=== PATIENT | female | born 1940 | race Caucasian/White ===

== ENCOUNTER 2017-03-20 06:55 | Outpatient (CLI) | payer MEDICARE, MEDICAID ==
[2017-03-20 07:34] LABS: ALT (SGPT) 62 U/L (8-55); AST (SGOT) 37 U/L (5-34); Albumin 4.1 g/dL (3.4-4.8); Alkaline Phosphatase 114 U/L (40-150); Anion Gap 19 mmol/L (10-20); Bilirubin, Total 0.6 mg/dL (0.2-1.2); Calc. Creatinine Clearance 0 mL/min (70-130); Carbon Dioxide 24 mmol/L (23-31); Chloride 103 mmol/L (98-107); Cholesterol 294 mg/dL (< 200 Desired); Estimated GFR-MDRD 55; Glucose 101 mg/dL (83-110); HDL Cholesterol 59 mg/dL (>60 Neg Risk); LDL Cholesterol, Calculated 185 mg/dL; Potassium 3.8 mmol/L (3.5-5.1); Protein, Total 7.1 g/dL (5.8-8.1); Sodium 142 mmol/L (136-145); Triglycerides 251 mg/dL (Less than 150)
[2017-03-20 07:48] LABS: #Basophils 0.1 thou/uL (0.0-0.2); #Eosinphils 0.5 thou/uL (0.0-0.7); #Lymphocytes 5.5 thou/uL (1.20-3.40); #Monocytes 1.1 thou/uL (0.11-0.59); #Neutrophils 7.9 thou/uL (1.40-6.50); %Eosinophils 3.3 % (0.0-10.0); %Lymphocytes 36.3 % (21.0-51.0); %Neutrophils 52.5 % (42.0-75.0); Hemoglobin 12.4 g/dL (12.0-16.0); Mean Corpuscular Hemoglobin 29.6 pg (27.0-31.0); Mean Corpuscular Volume 92.4 fl (81.0-99.0); Mean Platelet Volume 9.2 fL (7.4-10.4); Platelet Count 339 thou/uL (130-400); RBC Distribution Width 15.7 % (11.5-14.5); Red Blood Cell (RBC) Count 4.18 mill/uL (4.20-5.40)
[2017-03-20 08:15] LABS: BUN (Urea Nitrogen) 23 mg/dL (9.8-20.1)
== END 2017-03-20 06:56 | disposition home or self-care (01) ==
LOC: NAV LAB 06:55
PROVIDERS: ATTEND Family Medicine
DX: E03.9 Hypothyroidism, unspecified (principal); G89.29 Other chronic pain; I10 Essential (primary) hypertension
CPT/HCPCS: 36415; 80053; 80061; 84443; 85025

== ENCOUNTER 2017-04-02 07:26 | Outpatient (CLI) | payer MEDICARE, OTHER ==
[2017-04-02 08:23] LABS: Prothrombin Time 32.3 SEC (12.0-14.7)
[2017-04-02 08:35] LABS: #Lymphocytes 1.7 thou/uL (1.20-3.40); #Monocytes 0.8 thou/uL (0.11-0.59); #Neutrophils 17.3 thou/uL (1.40-6.50); %Basophils 0.2 % (0.0-1.0); %Lymphocytes 8.6 % (21.0-51.0); %Monocytes 3.9 % (0.0-10.0); %Neutrophils 87.3 % (42.0-75.0); Hemoglobin 9.9 g/dL (12.0-16.0); Mean Corpuscular HGB CONC 32.8 g/dL (32.0-36.0); Mean Corpuscular Hemoglobin 30.5 pg (27.0-31.0); Mean Corpuscular Volume 92.9 fl (81.0-99.0); Mean Platelet Volume 8.1 fL (7.4-10.4); Platelet Count 343 thou/uL (130-400); RBC Distribution Width 15.9 % (11.5-14.5); Red Blood Cell (RBC) Count 3.26 mill/uL (4.20-5.40); White Blood Cell (WBC) Count 19.8 thou/uL (4.8-10.8)
== END 2017-04-02 07:27 | disposition home or self-care (01) ==
LOC: NAV LABSP 07:26
PROVIDERS: ATTEND Family Medicine
DX: T14.8 Other injury of unspecified body region (principal); R23.3 Spontaneous ecchymoses
CPT/HCPCS: 36415; 85025; 85610

== ENCOUNTER 2017-04-10 07:49 | Outpatient (CLI) | payer MEDICARE, MEDICAID ==
[2017-04-10 09:50] LABS: Band 7 % (5-11); Eosinophils 1 % (0-10); Hemoglobin 10.1 g/dL (12.0-16.0); Lymphocytes 16 % (21-51); MDiff Complete? YES; Mean Corpuscular HGB CONC 31.4 g/dL (32.0-36.0); Mean Corpuscular Hemoglobin 30.2 pg (27.0-31.0); Mean Corpuscular Volume 96.1 fl (81.0-99.0); Mean Platelet Volume 8.9 fL (7.4-10.4); Monocytes 2 % (0-10); Neutrophil 74 % (42-75); PLT Morphology Comment Appears Adequate; Platelet Count 364 thou/uL (130-400); RBC Distribution Width 16.8 % (11.5-14.5); Red Blood Cell (RBC) Count 3.33 mill/uL (4.20-5.40); White Blood Cell (WBC) Count 20.4 thou/uL (4.8-10.8)
== END 2017-04-10 07:50 | disposition home or self-care (01) ==
LOC: NAV LABSP 07:49
PROVIDERS: ATTEND Family Medicine
DX: J44.9 Chronic obstructive pulmonary disease, unspecified (principal)
CPT/HCPCS: 36415; 85025

== ENCOUNTER 2017-04-16 16:29 | Outpatient (CLI) | payer MEDICARE, OTHER | END 2017-04-16 16:30 | disposition home or self-care (01) | LOC: NAV LABSP 16:29 | PROVIDERS: ATTEND Family Medicine | DX: R50.9 Fever, unspecified (principal) ==

== ENCOUNTER 2017-04-24 07:52 | Outpatient (CLI) | payer MEDICARE, OTHER ==
[2017-04-24 08:35] LABS: #Basophils 0.1 thou/uL (0.0-0.2); #Eosinphils 0.6 thou/uL (0.0-0.7); #Lymphocytes 4.2 thou/uL (1.20-3.40); #Monocytes 1.2 thou/uL (0.11-0.59); %Basophils 0.9 % (0.0-1.0); %Lymphocytes 25.8 % (21.0-51.0); %Monocytes 7.2 % (0.0-10.0); %Neutrophils 62.1 % (42.0-75.0); Hemoglobin 9.6 g/dL (12.0-16.0); Mean Corpuscular HGB CONC 31.5 g/dL (32.0-36.0); Mean Corpuscular Hemoglobin 29.8 pg (27.0-31.0); Mean Corpuscular Volume 94.7 fl (81.0-99.0); Mean Platelet Volume 7.3 fL (7.4-10.4); Platelet Count 401 thou/uL (130-400); RBC Distribution Width 15.4 % (11.5-14.5); Red Blood Cell (RBC) Count 3.21 mill/uL (4.20-5.40); White Blood Cell (WBC) Count 16.1 thou/uL (4.8-10.8)
== END 2017-04-24 07:53 | disposition home or self-care (01) ==
LOC: NAV LABSP 07:52
PROVIDERS: ATTEND Family Medicine
DX: D72.829 Elevated white blood cell count, unspecified (principal)
CPT/HCPCS: 36415; 85025

== ENCOUNTER 2017-04-30 15:13 | Emergency (ER) | payer MEDICARE, OTHER ==
[2017-04-30] MEDS ORDERED: Ibuprofen 200 MG TAB ONE (15:36)
[2017-04-30] MEDS ORDERED: Ondansetron HCl/PF 4 MG/2 ML Vial ONE (15:36)
[2017-04-30] MEDS ORDERED: Sodium Chloride 0.9% 1,000 ML ONE ×2 (15:36→17:43)
[2017-04-30] MEDS ORDERED: cloNIDine HCl 0.1 MG TAB ONE (15:36)
[2017-04-30 16:46] LABS: ALT (SGPT) 20 U/L (8-55); AST (SGOT) 15 U/L (5-34); Albumin 3.7 g/dL (3.4-4.8); Alkaline Phosphatase 117 U/L (40-150); Anion Gap 18 mmol/L (10-20); BUN (Urea Nitrogen) 28 mg/dL (9.8-20.1); Bilirubin, Total 0.2 mg/dL (0.2-1.2); Calc. Creatinine Clearance 0 mL/min (70-130); Calcium 9.4 mg/dL (7.8-10.44); Carbon Dioxide 22 mmol/L (23-31); Chloride 106 mmol/L (98-107); Estimated GFR-MDRD 29; Globulin 3.8 g/dL (2.4-3.5); Glucose 125 mg/dL (83-110); Potassium 4.7 mmol/L (3.5-5.1); Protein, Total 7.5 g/dL (6.0-8.3); Sodium 141 mmol/L (136-145)
[2017-04-30 17:00] LABS: Hemoglobin 11.7 g/dL (12.0-16.0); Lymphocytes 19 % (21-51); MDiff Complete? YES; Mean Corpuscular HGB CONC 31.1 g/dL (32.0-36.0); Mean Corpuscular Hemoglobin 29.9 pg (27.0-31.0); Monocytes 1 % (0-10); Neutrophil 80 % (42-75); Platelet Count 431 thou/uL (130-400); RBC Distribution Width 16.5 % (11.5-14.5); Red Blood Cell (RBC) Count 3.92 mill/uL (4.20-5.40); Target Cells SLIGHT = 2-5 cells (100X) (0-1/hpf); Tear Drops SLIGHT = 2-5 cells (100X) (0-1/hpf)
[2017-04-30] MEDS ORDERED: Cefepime 2 GM VIAL ONE (17:39)
[2017-04-30] MEDS ORDERED: Sodium Chloride 0.9% 0 ML ONE (17:39)
[2017-04-30] MEDS ORDERED: Sodium Chloride 0.9% 100 ML ONE (17:40)
[2017-04-30 18:08] LABS: Bilirubin Negative (Negative); Blood, Urine Negative (Negative); Clarity SL HAZY (Clear); Glucose, Urine (Dipstick) Negative (Negative); Leukocyte Negative (Negative); Nitrite Negative (Negative); Protein, Urine (Dipstick) Negative (Neg-Trace); Specific Gravity, Urine 1.015 (1.005-1.030); Urobilinogen 0.2 mg/dL (0.2-1.0); pH, Urine 5.5 (5.0-9.0)
[2017-04-30] MEDS ORDERED: metroNIDAZOLE 500 MG/100 ML BAG ONE (18:27)
[2017-04-30] MEDS ORDERED: Morphine Sulfate 2 MG/ML SYRINGE ONE (18:54)
--- NOTE | 2017-04-30 18:58 | CT ---
CT ABDOMEN AND PELVIS WITHOUT IV CONTRAST: 04/30/17 Multiple axial tomograms obtained through the abdomen and pelvis without IV enhancement. Oral contra st was not given. HISTORY: Abdominal pain, diarrhea. Comparison made to CT abdomen and pelvis 05/23/16. FINDINGS: Lung bases are clear. Calcified granuloma in the right lung base again noted. Calcified granuloma noted in the liver and spleen. The liver, spleen and pancreas unremarkable. Adre nal glands unremarkable. Kidneys are unremarkable. There is no hydronephrosis. No evidence of urinary tract calculus. Urinary bladder unremarkable. Small bowel loops are normal caliber. Diverticulosis of the sigmoid colon without CT evidence of div erticulitis. Aorta is normal caliber. No adenopathy seen. There is compression deformity involving the L4 vertebra and mild anterior wedging of the L2 and L3 vertebrae. These compressions have occurred since the April 23, 2016 exam. IMPRESSION: No acute intra-abdominal process identified. POS: [facility]
== END 2017-04-30 19:05 | disposition short-term general hospital (02) ==
LOC: NAV ERS 15:13
DX: R10.9 Unspecified abdominal pain (principal); R19.7 Diarrhea, unspecified; D72.829 Elevated white blood cell count, unspecified; J44.9 Chronic obstructive pulmonary disease, unspecified; E78.5 Hyperlipidemia, unspecified; E03.9 Hypothyroidism, unspecified; G62.9 Polyneuropathy, unspecified; M06.9 Rheumatoid arthritis, unspecified; I11.0 Hypertensive heart disease with heart failure; I50.9 Heart failure, unspecified; M35.3 Polymyalgia rheumatica; Z79.899 Other long term (current) drug therapy
CPT/HCPCS: 51701; 74176; 80053; 81003; 83605; 83690; 85025; 87040; 93005; A4353; J0692; J2270; J2405; J7050

== ENCOUNTER 2017-05-08 08:19 | Outpatient (CLI) | payer MEDICARE, OTHER ==
[2017-05-08 08:46] LABS: #Basophils 0.1 thou/uL (0.0-0.2); #Lymphocytes 2.1 thou/uL (1.20-3.40); #Neutrophils 15.6 thou/uL (1.40-6.50); %Basophils 0.3 % (0.0-1.0); %Monocytes 5.2 % (0.0-10.0); %Neutrophils 83.5 % (42.0-75.0); Mean Corpuscular HGB CONC 31.5 g/dL (32.0-36.0); Mean Corpuscular Hemoglobin 30.2 pg (27.0-31.0); Mean Corpuscular Volume 95.8 fl (81.0-99.0); Platelet Count 355 thou/uL (130-400); RBC Distribution Width 16.1 % (11.5-14.5); Red Blood Cell (RBC) Count 3.32 mill/uL (4.20-5.40); White Blood Cell (WBC) Count 18.6 thou/uL (4.8-10.8)
[2017-05-08 09:01] LABS: ALT (SGPT) 15 U/L (8-55); AST (SGOT) 11 U/L (5-34); Albumin 3.4 g/dL (3.4-4.8); Alkaline Phosphatase 91 U/L (40-150); Anion Gap 20 mmol/L (10-20); BUN (Urea Nitrogen) 43 mg/dL (9.8-20.1); Bilirubin, Total 0.2 mg/dL (0.2-1.2); Calc. Creatinine Clearance 0 mL/min (70-130); Calcium 9.5 mg/dL (7.8-10.44); Carbon Dioxide 23 mmol/L (23-31); Chloride 103 mmol/L (98-107); Estimated GFR-MDRD 57; Glucose 128 mg/dL (83-110); Potassium 4.2 mmol/L (3.5-5.1); Protein, Total 6.4 g/dL (6.0-8.3); Sodium 142 mmol/L (136-145)
== END 2017-05-08 08:20 | disposition home or self-care (01) ==
LOC: NAV LABSP 08:19
PROVIDERS: ATTEND Family Medicine
DX: J44.9 Chronic obstructive pulmonary disease, unspecified (principal)
CPT/HCPCS: 36415; 80053; 85025

== ENCOUNTER 2017-05-15 08:15 | Outpatient (CLI) | payer MEDICARE, OTHER ==
[2017-05-15 10:35] LABS: ALT (SGPT) 20 U/L (8-55); AST (SGOT) 12 U/L (5-34); Albumin 3.4 g/dL (3.4-4.8); Alkaline Phosphatase 86 U/L (40-150); Anion Gap 17 mmol/L (10-20); BUN (Urea Nitrogen) 40 mg/dL (9.8-20.1); Bilirubin, Total 0.2 mg/dL (0.2-1.2); Calc. Creatinine Clearance 0 mL/min (70-130); Carbon Dioxide 28 mmol/L (23-31); Chloride 99 mmol/L (98-107); Estimated GFR-MDRD 55; Globulin 2.8 g/dL (2.4-3.5); Glucose 131 mg/dL (83-110); Potassium 4.1 mmol/L (3.5-5.1); Protein, Total 6.2 g/dL (6.0-8.3); Sodium 140 mmol/L (136-145)
[2017-05-15 11:01] LABS: Hemoglobin 11.2 g/dL (12.0-16.0); Mean Corpuscular HGB CONC 31.7 g/dL (32.0-36.0); Mean Corpuscular Hemoglobin 30.4 pg (27.0-31.0); Mean Corpuscular Volume 95.7 fl (81.0-99.0); Mean Platelet Volume 10.2 fL (7.4-10.4); Platelet Count 316 thou/uL (130-400); RBC Distribution Width 15.6 % (11.5-14.5); Red Blood Cell (RBC) Count 3.69 mill/uL (4.20-5.40); White Blood Cell (WBC) Count 24.1 thou/uL (4.8-10.8)
[2017-05-15 11:02] LABS: Band 7 % (5-11); Lymphocytes 22 % (21-51); MDiff Complete? YES; Monocytes 1 % (0-10); Neutrophil 70 % (42-75); PLT Morphology Comment Appears Adequate
== END 2017-05-15 08:16 | disposition home or self-care (01) ==
LOC: NAV LABSP 08:15
PROVIDERS: ATTEND Family Medicine
DX: J44.9 Chronic obstructive pulmonary disease, unspecified (principal)
CPT/HCPCS: 36415; 80053; 85025

== ENCOUNTER 2017-05-17 16:15 | Outpatient (CLI) | payer MEDICARE, OTHER ==
[2017-05-17 21:53] LABS: #Basophils 0.1 thou/uL (0.0-0.2); #Lymphocytes 2.6 thou/uL (1.20-3.40); #Monocytes 0.7 thou/uL (0.11-0.59); #Neutrophils 21.3 thou/uL (1.40-6.50); %Basophils 0.2 % (0.0-1.0); %Eosinophils 0.1 % (0.0-10.0); %Lymphocytes 10.6 % (21.0-51.0); %Monocytes 2.7 % (0.0-10.0); %Neutrophils 86.3 % (42.0-75.0); Hemoglobin 11.8 g/dL (12.0-16.0); Mean Corpuscular HGB CONC 31.5 g/dL (32.0-36.0); Mean Corpuscular Hemoglobin 30.7 pg (27.0-31.0); Mean Corpuscular Volume 97.3 fl (81.0-99.0); Mean Platelet Volume 8.5 fL (7.4-10.4); Platelet Count 322 thou/uL (130-400); RBC Distribution Width 15.5 % (11.5-14.5); Red Blood Cell (RBC) Count 3.84 mill/uL (4.20-5.40); White Blood Cell (WBC) Count 24.7 thou/uL (4.8-10.8)
== END 2017-05-17 16:16 | disposition home or self-care (01) ==
LOC: NAV LABSP 16:15
PROVIDERS: ATTEND Family Medicine
DX: J02.9 Acute pharyngitis, unspecified (principal)
CPT/HCPCS: 85025; 87070; 87430

== ENCOUNTER 2017-05-21 06:38 | Inpatient (IN) | payer MEDICARE, OTHER ==
[2017-05-21 08:38] LABS: #Basophils 0.1 thou/uL (0.0-0.2); #Eosinphils 0.4 thou/uL (0.0-0.7); #Lymphocytes 3.1 thou/uL (1.20-3.40); #Monocytes 1.3 thou/uL (0.11-0.59); #Neutrophils 14.9 thou/uL (1.40-6.50); %Basophils 0.3 % (0.0-1.0); %Lymphocytes 15.6 % (21.0-51.0); %Monocytes 6.5 % (0.0-10.0); %Neutrophils 75.4 % (42.0-75.0); Hemoglobin 11.4 g/dL (12.0-16.0); Mean Corpuscular HGB CONC 31.3 g/dL (32.0-36.0); Mean Corpuscular Hemoglobin 29.9 pg (27.0-31.0); Mean Corpuscular Volume 95.5 fl (81.0-99.0); Mean Platelet Volume 8.2 fL (7.4-10.4); Platelet Count 252 thou/uL (130-400); RBC Distribution Width 15.7 % (11.5-14.5); Red Blood Cell (RBC) Count 3.81 mill/uL (4.20-5.40); White Blood Cell (WBC) Count 19.7 thou/uL (4.8-10.8)
[2017-05-21 08:45] LABS: Lactic Acid 1.7 mmol/L (0.5-2.2)
[2017-05-21 08:52] LABS: ALT (SGPT) 25 U/L (8-55); AST (SGOT) 18 U/L (5-34); Albumin 3.5 g/dL (3.4-4.8); Alkaline Phosphatase 92 U/L (40-150); Anion Gap 17 mmol/L (10-20); BUN (Urea Nitrogen) 32 mg/dL (9.8-20.1); Bilirubin, Total 0.3 mg/dL (0.2-1.2); CKMB 3.2 ng/mL (0-6.6); Calc. Creatinine Clearance 0 mL/min (70-130); Calcium 9.3 mg/dL (7.8-10.44); Carbon Dioxide 28 mmol/L (23-31); Chloride 100 mmol/L (98-107); Estimated GFR-MDRD 59; Globulin 3.1 g/dL (2.4-3.5); Glucose 105 mg/dL (83-110); Potassium 3.8 mmol/L (3.5-5.1); Protein, Total 6.6 g/dL (6.0-8.3); Sodium 141 mmol/L (136-145); Troponin I 0.022 ng/mL (< 0.028)
--- NOTE | 2017-05-21 09:15 | RAD ---
PA AND LATERAL CHEST HISTORY: Cough. COMPARISON: 05/01/2017 FINDINGS: The heart size is within normal limits. There are some atherosclerotic changes of the aorta. The l ungs are clear of any definite infiltrative process. Slightly increased density in the right base o n the PA projection may just be related to overlying soft tissues. I cannot definitely see an infil trate on the lateral view. There is some minimal scarring in the right upper lobe. IMPRESSION: Chronic lung change. No definite acute process. POS: [facility]
[2017-05-21] MEDS ORDERED: Sodium Chloride 0.9% 100 ML ONE (09:16)
[2017-05-21] MEDS ORDERED: Fluconazole 100 MG TAB ONE (09:16)
[2017-05-21] MEDS ORDERED: Cefepime 2 GM VIAL ONE (09:16)
[2017-05-21 11:01] LABS: Hemoglobin A1c 6.3 % (4.0-6.0)
[2017-05-21 11:27] VITALS: BMI 25.8
[2017-05-21] MEDS ORDERED: Cefepime 2 GM in Sodium Chloride 0.9% 100 ML IVPB SCH (14:00)
[2017-05-21] MEDS: Benzonatate 100 MG CAP PO SCH ×2 (14:56→21:26)
[2017-05-21] MEDS ORDERED: Sodium Chloride 0.9% 10 ML ONE (14:59)
[2017-05-21 15:39] LABS: Bilirubin Negative (Negative); Blood, Urine Negative (Negative); Clarity Clear (Clear); Glucose, Urine (Dipstick) Negative (Negative); Leukocyte Small (Negative); Nitrite Positive (Negative); Protein, Urine (Dipstick) Negative (Neg-Trace); Urobilinogen 0.2 mg/dL (0.2-1.0)
[2017-05-21 15:45] LABS: Bacteria/HPF Rare-Few HPF (None Seen); RBC/HPF None Seen HPF (0-3); Squamous Epithelial 0-3 HPF (0-3)
[2017-05-21] MEDS ORDERED: Guaifenesin DM 100-10/5 ML UDCUP PO PRN (20:27)
[2017-05-21] MEDS ORDERED: Loperamide HCl 2 MG CAP PO PRN (20:27)
[2017-05-21] MEDS: diphenhydrAMINE HCl 25 MG CAP PO SCH (21:26)
[2017-05-21] MEDS: ALPRAZolam 0.25 MG TAB PO SCH (21:26)
[2017-05-21] MEDS: Gabapentin 300 MG CAP PO SCH (21:26)
[2017-05-22] MEDS: Levothyroxine Sodium 100 MCG TAB PO SCH (05:55)
[2017-05-22] MEDS: Mometasone/Formoterol 60 PUFF AER INH SCH (06:00)
[2017-05-22] MEDS: methylPREDNISolone 4 mg Tablet PO SCH ×2 (09:05→14:08)
[2017-05-22] MEDS: Saccharomyces boulardii 250 MG CAP PO SCH (09:22)
[2017-05-22] MEDS: Potassium Chloride 20 MEQ TAB PO SCH ×2 (09:22→17:20)
[2017-05-22] MEDS: ALPRAZolam 0.25 MG TAB PO SCH ×3 (09:22→20:36)
[2017-05-22] MEDS: Gabapentin 300 MG CAP PO SCH ×3 (09:24→20:37)
[2017-05-22] MEDS: Furosemide 40 MG TAB PO SCH (09:25)
[2017-05-22] MEDS: Venlafaxine HCl XR 75 MG CAP PO SCH (09:25)
[2017-05-22] MEDS: diphenhydrAMINE HCl 25 MG CAP PO SCH (20:36)
[2017-05-23] MEDS: Mometasone/Formoterol 60 PUFF AER INH SCH (05:50)
[2017-05-23] MEDS: Levothyroxine Sodium 100 MCG TAB PO SCH (05:50)
[2017-05-23 07:30] VITALS: BP 157/71; TEMP 98.5
[2017-05-23] MEDS: Venlafaxine HCl XR 75 MG CAP PO SCH (08:46)
[2017-05-23] MEDS: Potassium Chloride 20 MEQ TAB PO SCH (08:46)
[2017-05-23] MEDS: Gabapentin 300 MG CAP PO SCH (08:46)
[2017-05-23] MEDS: Saccharomyces boulardii 250 MG CAP PO SCH (08:46)
[2017-05-23] MEDS: Furosemide 40 MG TAB PO SCH (08:46)
[2017-05-23] MEDS: methylPREDNISolone 4 mg Tablet PO SCH (08:51)
[2017-05-23] MEDS ORDERED: fentaNYL 50 mcg/hour Patch TD SCH ×2 (09:00)
[2017-05-23] MEDS: ALPRAZolam 0.25 MG TAB PO SCH (09:20)
[2017-05-23] MEDS ORDERED: Fluconazole 100 MG TAB PO SCH (09:45)
[2017-05-24] MEDS ORDERED: Fluconazole 100 MG TAB PO SCH (09:00)
== END 2017-05-23 13:45 | DRG 191 ==
LOC: NAV ERS 06:38 → NAV ACUTE 11:16
PROVIDERS: ADMIT Family Medicine; ATTEND Family Medicine
DX: J44.1 Chronic obstructive pulmonary disease with (acute) exacerbation (principal); B37.89 Other sites of candidiasis; F32.9 Major depressive disorder, single episode, unspecified; J02.8 Acute pharyngitis due to other specified organisms; E78.5 Hyperlipidemia, unspecified; E03.9 Hypothyroidism, unspecified; M35.3 Polymyalgia rheumatica; M79.7 Fibromyalgia; Z87.440 Personal history of urinary (tract) infections; M54.5 Low back pain; G89.29 Other chronic pain; Z98.1 Arthrodesis status
CPT/HCPCS: 71020; 80053; 81001; 82553; 83036; 83605; 84484; 85025; 87040; 87070; 87077; 87081; 87186; 87205; 87430; 88184; 93005; 94640; 96365; 96367; A4216; J0692; J1956; J7050; J7509; J7620

== ENCOUNTER → 2017-07-03 | Emergency (ER) | payer MEDICARE, OTHER ==
[~2017-07-03] MED LIST: Acetaminophen 650 MG Suppository ONE; Naloxone HCl 0.4 mg/ml Vial ONE; Sodium Chloride 0.9% 100 ML ONE; Sodium Chloride 0.9% 250 ML 250 ML ONE; cefTRIAXone\\ROCEPHIN 2 GM VIAL ONE
[2017-07-03 13:28] LABS: Bilirubin Negative (Negative); Blood, Urine Negative (Negative); Clarity Clear (Clear); Glucose, Urine (Dipstick) Negative (Negative); Leukocyte Negative (Negative); Nitrite Negative (Negative); Protein, Urine (Dipstick) Negative (Neg-Trace); Urobilinogen 0.2 mg/dL (0.2-1.0); pH, Urine 5.5 (5.0-9.0)
[2017-07-03 13:40] LABS: Amphetamine Not Detected (NotDetected); Benzodiazepine Screen Detected (NotDetected); Cocaine Metabolite Screen Not Detected (NotDetected); Methamphetamine Not Detected (NotDetected); Opiate Screen Detected (NotDetected); Phencyclidine (PCP) Not Detected (NotDetected); THC/Cannabinoid Screen Not Detected (NotDetected)
[2017-07-03 13:41] LABS: Barbiturates Screen Not Detected (NotDetected); Medtox Control Line Valid? VALID (VALID); Methadone Not Detected (NotDetected); Oxycodone Screen Not Detected (NotDetected); Tricyclic Screen Not Detected (NotDetected)
[2017-07-03 13:41] LABS: CKMB 1.7 ng/mL (0-6.6); Troponin I 0.013 ng/mL (< 0.028)
[2017-07-03 13:43] LABS: Hemoglobin 11.1 g/dL (12.0-16.0); Mean Corpuscular HGB CONC 31.5 g/dL (32.0-36.0); Mean Corpuscular Volume 95.2 fl (81.0-99.0); Platelet Count 417 thou/uL (130-400); RBC Distribution Width 15.1 % (11.5-14.5); Red Blood Cell (RBC) Count 3.69 mill/uL (4.20-5.40); White Blood Cell (WBC) Count 32.7 thou/uL (4.8-10.8)
[2017-07-03 13:44] LABS: Anisocytosis SLIGHT = 6-15 cells (100X) (0-5/hpf); Eosinophils 1 % (0-10); Lymphocytes 5 % (21-51); MDiff Complete? YES; Monocytes 4 % (0-10); Neutrophil 89 % (42-75); PLT Morphology Comment Appears Adequate; Vacuoles SLIGHT
[2017-07-03 13:45] LABS: ALT (SGPT) 22 U/L (8-55); AST (SGOT) 14 U/L (5-34); Acetaminophen Less than 6.0 mcg/mL (10.0-30.0); Albumin 3.6 g/dL (3.4-4.8); Alcohol Less than 10 mg/dL (Less than 10); Alkaline Phosphatase 85 U/L (40-150); Anion Gap 17 mmol/L (10-20); BUN (Urea Nitrogen) 32 mg/dL (9.8-20.1); Bilirubin, Total 0.4 mg/dL (0.2-1.2); Calc. Creatinine Clearance 0 mL/min (70-130); Calcium 9.6 mg/dL (7.8-10.44); Carbon Dioxide 30 mmol/L (23-31); Chloride 95 mmol/L (98-107); Estimated GFR-MDRD 37; Globulin 3.5 g/dL (2.4-3.5); Glucose 156 mg/dL (83-110); Potassium 3.8 mmol/L (3.5-5.1); Protein, Total 7.1 g/dL (6.0-8.3); Salicylate Less than 8.0 mg/dL (15.0-30.0); Sodium 138 mmol/L (136-145)
--- NOTE | 2017-07-03 17:37 | CT ---
NONCONTRAST CT OF THE BRAIN INDICATIONS: Altered mental status after morphine administration. COMPARISON: Prior exam dated 08/28/2016. FINDINGS: There is generalized cerebral and cerebellar atrophy, which is stable. No definite acute infarct, h emorrhage, or hydrocephalus is present. The skull and extracranial soft tissues appear within oz l limits. IMPRESSION: No acute intracranial abnormality. POS: [facility]
--- NOTE | 2017-07-03 18:21 | RAD ---
AP VIEW CHEST INDICATIONS: Chest pain. IMPRESSION: No acute cardiopulmonary abnormality. Low lung volumes. COMMENTS: Chronic lung changes are similar. Chronic osseous changes are similar. POS: [facility]
[2017-07-04 08:11] LABS: Actual Bicarbonate (HCO3a) 34.2 mEq/L (22-26); Base Excess (BEa) 9.3 mEq/L (0 (+/-) 2.5); Hemoglobin (Hb) 11.6 g/dL (12.0-16.0); pH, Arterial 7.47 (7.35-7.45)
== END ==
LOC: NAV ERS 12:21
DX: A41.9 Sepsis, unspecified organism (principal); L20.9 Atopic dermatitis, unspecified; R41.82 Altered mental status, unspecified; E78.5 Hyperlipidemia, unspecified; I11.0 Hypertensive heart disease with heart failure; I50.9 Heart failure, unspecified; M06.9 Rheumatoid arthritis, unspecified; M35.3 Polymyalgia rheumatica; E03.9 Hypothyroidism, unspecified; G62.9 Polyneuropathy, unspecified
CPT/HCPCS: 36416; 51701; 70450; 71010; 80053; 80306; 80307; 81003; 82550; 82553; 82805; 83605; 84484; 85025; 87040; 96374; 36415-59; A4353; J0696; J2310; J3370; J7050

== ENCOUNTER 2017-07-10 07:26 | Outpatient (CLI) | payer MEDICARE, OTHER ==
[2017-07-10 08:59] LABS: #Basophils 0.2 thou/uL (0.0-0.2); #Eosinphils 0.7 thou/uL (0.0-0.7); #Lymphocytes 4.4 thou/uL (1.20-3.40); #Neutrophils 11.3 thou/uL (1.40-6.50); %Basophils 1.1 % (0.0-1.0); %Eosinophils 3.9 % (0.0-10.0); %Lymphocytes 25.1 % (21.0-51.0); %Monocytes 5.5 % (0.0-10.0); %Neutrophils 64.4 % (42.0-75.0); Hemoglobin 10.8 g/dL (12.0-16.0); Mean Corpuscular HGB CONC 30.8 g/dL (32.0-36.0); Mean Corpuscular Hemoglobin 29.6 pg (27.0-31.0); Mean Platelet Volume 7.8 fL (7.4-10.4); Platelet Count 402 thou/uL (130-400); Red Blood Cell (RBC) Count 3.66 mill/uL (4.20-5.40); White Blood Cell (WBC) Count 17.6 thou/uL (4.8-10.8)
[2017-07-10 09:11] LABS: Anion Gap 19 mmol/L (10-20); BUN (Urea Nitrogen) 20 mg/dL (9.8-20.1); Calc. Creatinine Clearance 0 mL/min (70-130); Calcium 9.4 mg/dL (7.8-10.44); Carbon Dioxide 23 mmol/L (23-31); Chloride 106 mmol/L (98-107); Estimated GFR-MDRD 46; Glucose 127 mg/dL (83-110); Potassium 4.4 mmol/L (3.5-5.1); Sodium 144 mmol/L (136-145)
== END 2017-07-10 07:27 | disposition home or self-care (01) ==
LOC: NAV LABSP 07:26
PROVIDERS: ATTEND Family Medicine
DX: J44.9 Chronic obstructive pulmonary disease, unspecified (principal)
CPT/HCPCS: 36415; 80048; 85025

== ENCOUNTER 2017-07-19 07:13 | Outpatient (CLI) | payer MEDICARE, OTHER | END 2017-07-19 07:14 | disposition home or self-care (01) | LOC: NAV LABSP 07:13 | PROVIDERS: ATTEND Family Medicine | DX: A04.7 Enterocolitis due to Clostridium difficile (principal) | CPT/HCPCS: 87324; 87449 ==

== ENCOUNTER 2017-07-23 09:30 | Outpatient (CLI) | payer MEDICARE, OTHER | END 2017-07-23 09:31 | disposition home or self-care (01) | LOC: NAV LABSP 09:30 | PROVIDERS: ATTEND Family Medicine | DX: R19.7 Diarrhea, unspecified (principal) | CPT/HCPCS: 87324; 87449 ==

== ENCOUNTER 2017-08-08 10:30 | Outpatient (CLI) | payer MEDICARE, OTHER ==
[2017-08-08 12:57] LABS: Bilirubin Negative (Negative); Blood, Urine Negative (Negative); Clarity Clear (Clear); Glucose, Urine (Dipstick) Negative (Negative); Leukocyte Trace (Negative); Nitrite Negative (Negative); Protein, Urine (Dipstick) Negative (Neg-Trace); Specific Gravity, Urine 1.015 (1.005-1.030); Urobilinogen 0.2 mg/dL (0.2-1.0); pH, Urine 5.5 (5.0-9.0)
[2017-08-08 13:49] LABS: Bacteria/HPF Rare-Few HPF (None Seen); Other Microscopic Description NO; RBC/HPF None Seen HPF (0-3); Squamous Epithelial 0-3 HPF (0-3)
== END 2017-08-08 10:31 | disposition home or self-care (01) ==
LOC: NAV LABSP 10:30
PROVIDERS: ATTEND Family Medicine
DX: F33.9 Major depressive disorder, recurrent, unspecified (principal); B37.0 Candidal stomatitis
CPT/HCPCS: 81001; 87077; 87086; 87186

== ENCOUNTER 2017-08-09 07:14 | Outpatient (CLI) | payer MEDICARE, OTHER | END 2017-08-09 07:15 | disposition home or self-care (01) | LOC: NAV LABSP 07:14 | PROVIDERS: ATTEND Family Medicine | DX: R19.7 Diarrhea, unspecified (principal) | CPT/HCPCS: 87324; 87449 ==

== ENCOUNTER 2017-08-14 15:41 | Outpatient (CLI) | payer MEDICARE ==
[2017-08-14 16:31] LABS: #Basophils 0.1 thou/uL (0.0-0.2); #Eosinphils 0.6 thou/uL (0.0-0.7); #Lymphocytes 2.1 thou/uL (1.20-3.40); #Monocytes 1.4 thou/uL (0.11-0.59); #Neutrophils 12.6 thou/uL (1.40-6.50); %Basophils 0.8 % (0.0-1.0); %Eosinophils 3.3 % (0.0-10.0); %Lymphocytes 12.2 % (21.0-51.0); %Monocytes 8.4 % (0.0-10.0); %Neutrophils 75.3 % (42.0-75.0); Hemoglobin 9.6 g/dL (12.0-16.0); Mean Corpuscular HGB CONC 31.1 g/dL (32.0-36.0); Mean Corpuscular Hemoglobin 29.1 pg (27.0-31.0); Mean Corpuscular Volume 93.7 fl (81.0-99.0); Mean Platelet Volume 8.9 fL (7.4-10.4); Platelet Count 289 thou/uL (130-400); RBC Distribution Width 14.2 % (11.5-14.5); Red Blood Cell (RBC) Count 3.31 mill/uL (4.20-5.40); White Blood Cell (WBC) Count 16.8 thou/uL (4.8-10.8)
== END 2017-08-14 15:42 | disposition home or self-care (01) ==
LOC: NAV LABSP 15:41
PROVIDERS: ATTEND Family Medicine
DX: B37.0 Candidal stomatitis (principal); R19.7 Diarrhea, unspecified; M62.541 Muscle wasting and atrophy, not elsewhere classified, right hand
CPT/HCPCS: 85025

== ENCOUNTER 2017-10-12 13:50 | Outpatient (CLI) | payer MEDICARE, MEDICAID ==
[2017-10-12 14:13] LABS: #Basophils 0.2 thou/uL (0.0-0.2); #Eosinphils 0.1 thou/uL (0.0-0.7); #Lymphocytes 2.3 thou/uL (1.20-3.40); %Eosinophils 0.7 % (0.0-10.0); %Lymphocytes 12.9 % (21.0-51.0); %Monocytes 5.5 % (0.0-10.0); %Neutrophils 79.9 % (42.0-75.0); Hemoglobin 10.2 g/dL (12.0-16.0); Mean Corpuscular Hemoglobin 27.8 pg (27.0-31.0); Mean Corpuscular Volume 92.8 fl (81.0-99.0); Mean Platelet Volume 8.7 fL (7.4-10.4); Platelet Count 622 thou/uL (130-400); RBC Distribution Width 15.3 % (11.5-14.5); Red Blood Cell (RBC) Count 3.66 mill/uL (4.20-5.40); White Blood Cell (WBC) Count 17.6 thou/uL (4.8-10.8)
[2017-10-12 14:20] LABS: Anion Gap 20 mmol/L (10-20); BUN (Urea Nitrogen) 20 mg/dL (9.8-20.1); Calc. Creatinine Clearance 0 mL/min (70-130); Carbon Dioxide 22 mmol/L (23-31); Chloride 99 mmol/L (98-107); Estimated GFR-MDRD 33; Glucose 98 mg/dL (83-110); Potassium 5.9 mmol/L (3.5-5.1); Sodium 135 mmol/L (136-145)
[2017-10-12 14:25] LABS: Bilirubin Negative (Negative); Blood, Urine Negative (Negative); Clarity Hazy (Clear); Glucose, Urine (Dipstick) Negative (Negative); Leukocyte Trace (Negative); Nitrite Negative (Negative); Protein, Urine (Dipstick) Negative (Neg-Trace); Specific Gravity, Urine 1.025 (1.005-1.030); Urobilinogen 0.2 mg/dL (0.2-1.0)
[2017-10-12 14:29] LABS: Calcium 9.7 mg/dL (7.8-10.44)
[2017-10-12 14:36] LABS: Bacteria/HPF 1+ HPF (None Seen); Squamous Epithelial 0-3 HPF (0-3); WBC/HPF 0-3 HPF (0-3); Yeast-All Forms 3+ HPF (None Seen)
== END 2017-10-12 13:51 | disposition home or self-care (01) ==
LOC: NAV LAB 13:50
PROVIDERS: ATTEND Family Medicine
DX: R41.0 Disorientation, unspecified (principal)
CPT/HCPCS: 80048; 81003; 81015; 85025; 87086

== ENCOUNTER → 2018-02-21 | Day surgery (SDC) | payer MEDICARE, MEDICAID ==
[~2018-02-21] MED LIST changes: -Acetaminophen 650 MG Suppository ONE; +Cosyntropin 250 MCG VIAL ONE; -Naloxone HCl 0.4 mg/ml Vial ONE; -Sodium Chloride 0.9% 100 ML ONE; -Sodium Chloride 0.9% 250 ML 250 ML ONE; -cefTRIAXone\\ROCEPHIN 2 GM VIAL ONE
== END ==
LOC: NAV ER/OP 09:23 → EDSTATUS 09:53
PROVIDERS: ATTEND Physician Assistant Medical
DX: R11.0 Nausea (principal); I12.9 Hypertensive chronic kidney disease with stage 1 through stage 4 chronic kidney disease, or unspecified chronic kidney disease; N18.2 Chronic kidney disease, stage 2 (mild); M35.3 Polymyalgia rheumatica; J44.9 Chronic obstructive pulmonary disease, unspecified; G89.4 Chronic pain syndrome; D72.829 Elevated white blood cell count, unspecified; E78.5 Hyperlipidemia, unspecified; Z79.891 Long term (current) use of opiate analgesic; Z79.82 Long term (current) use of aspirin; Z79.899 Other long term (current) drug therapy; Z88.5 Allergy status to narcotic agent; Z88.8 Allergy status to other drugs, medicaments and biological substances; Z88.1 Allergy status to other antibiotic agents; Z91.041 Radiographic dye allergy status
CPT/HCPCS: 80400; J0834

== ENCOUNTER 2018-12-20 23:24 | Outpatient (CLI) | payer MEDICARE, OTHER | END 2018-12-20 23:25 | disposition home or self-care (01) | LOC: NAV LABSP 23:24 | PROVIDERS: ATTEND Internal Medicine | DX: R05 Cough (principal); R50.9 Fever, unspecified | CPT/HCPCS: 87804 ==

== ENCOUNTER 2019-01-23 12:13 | Outpatient (CLI) | payer MEDICARE, OTHER ==
[2019-01-23 13:21] LABS: Hemoglobin 9.4 g/dL (12.0-16.0); Mean Corpuscular HGB CONC 30.5 g/dL (32.0-36.0); Mean Corpuscular Hemoglobin 29.5 pg (27.0-31.0); Mean Corpuscular Volume 96.7 fL (78.0-98.0); Mean Platelet Volume 7.9 fL (7.4-10.4); Platelet Count 297 thou/uL (130-400); RBC Distribution Width 17.1 % (11.5-14.5); Red Blood Cell (RBC) Count 3.18 mill/uL (4.20-5.40); White Blood Cell (WBC) Count 13.2 thou/uL (4.8-10.8)
[2019-01-23 13:22] LABS: Band 4 % (5-11); Eosinophils 4 % (0-10); Lymphocytes 14 % (21-51); MDiff Complete? YES; Monocytes 2 % (0-10); Neutrophil 75 % (42-75); Platelet Morphology Comment Appears Adequate; Reactive Lymphocytes 1 % (0-10)
== END 2019-01-23 12:14 | disposition home or self-care (01) ==
LOC: NAV LAB 12:13
PROVIDERS: ATTEND Internal Medicine
DX: R06.02 Shortness of breath (principal); R05 Cough
CPT/HCPCS: 36415; 85025

== ENCOUNTER 2019-02-17 14:26 | Outpatient (CLI) | payer MEDICARE, OTHER ==
[2019-02-17 15:01] LABS: #Basophils 0.1 thou/uL (0.0-0.2); #Lymphocytes 1.9 thou/uL (1.20-3.40); #Monocytes 0.5 thou/uL (0.11-0.59); #Neutrophils 15.8 thou/uL (1.40-6.50); %Basophils 0.4 % (0.0-1.0); %Eosinophils 0.1 % (0.0-10.0); %Lymphocytes 10.4 % (21.0-51.0); %Monocytes 2.7 % (0.0-10.0); %Neutrophils 86.4 % (42.0-75.0); Hemoglobin 9.8 g/dL (12.0-16.0); Mean Corpuscular Hemoglobin 29.6 pg (27.0-31.0); Mean Corpuscular Volume 98.7 fL (78.0-98.0); Mean Platelet Volume 7.8 fL (7.4-10.4); Platelet Count 392 thou/uL (130-400); RBC Distribution Width 17.7 % (11.5-14.5); Red Blood Cell (RBC) Count 3.32 mill/uL (4.20-5.40); White Blood Cell (WBC) Count 18.3 thou/uL (4.8-10.8)
[2019-02-17 20:24] LABS: Bilirubin Negative (Negative); Blood, Urine Negative (Negative); Clarity SL HAZY (Clear); Glucose, Urine (Dipstick) Negative (Negative); Leukocyte Negative (Negative); Nitrite Negative (Negative); Protein, Urine (Dipstick) Negative (Neg-Trace); Specific Gravity, Urine 1.025 (1.002-1.036); Urobilinogen 0.2 mg/dL (0.2-1.0)
[2019-02-17 20:26] LABS: WBC/HPF 0-3 HPF (0-3)
== END 2019-02-17 14:27 | disposition home or self-care (01) ==
LOC: NAV LAB 14:26
PROVIDERS: ATTEND Internal Medicine
DX: D72.829 Elevated white blood cell count, unspecified (principal)
CPT/HCPCS: 81001; 85025; 87086